=== PATIENT | male | born 1965 | race African-American/Black ===

== ENCOUNTER 2021-10-28 14:42 | Observation (INO) ==
[2021-10-28 15:50] LABS: Basophils % 0.4 % (0.0-0.8); Eosinophils # 0.1 10*3/uL (0.0-0.87); Eosinophils % 1.5 % (0.00-10.9); Hematocrit 43.1 VOL% (42.0-52.0); Hemoglobin 14.2 GM/DL (14.0-18.0); Immature Granulocytes % 0.3 %; Immature Granulocytes Absolute 0.02 #; Lymphocytes # 2.2 10*3/uL (1.4-4.0); Lymphocytes % 28.6 % (21.2-54.2); Mean Corpuscular HGB Conc 32.9 GM/DL (32-36); Mean Corpuscular Volume 79.2 FL (87-102); Mean Platelet Volume 10.3 FL (9.6-12.0); Monocytes # 0.7 10*3/uL (0.11-0.8); Monocytes % 8.6 % (1.7-12.7); Neutrophils % 60.6 % (38.7-73.9); Platelet Count 257 T/CUMM (130-400); Red Blood Count 5.44 MC/CUMM (3.8-5.5); Red Cell Distribution Width 15.9 % (9.3-17.3); White Blood Count 7.5 T/CUMM (4-12)
[2021-10-28 16:14] LABS: Albumin 3.2 G/DL (3.4-5.0); Bilirubin,Total 0.6 MG/DL (0.20-1.00); Calcium 8.8 MG/DL (8.5-10.1); Osmolality,Calculated 290.8 MOS/KG (273-304); Potassium 4.1 MMOL/L (3.5-5.1); Total Protein 6.3 G/DL (6.4-8.2)
[2021-10-28] MEDS ORDERED: INSULIN REGULAR 100 UNIT/ML IV ONE (17:38)
[2021-10-28 19:44] LABS: Barbiturates Screen,Urine Negative (Negative); Benzodiazepines Screen,Urine Negative (Negative); Cannabinoid Screen,Urine Positive (Negative); Opiate Screen,Urine Negative (Negative); Phencyclidine Screen,Urine Negative (Negative)
[2021-10-28 19:52] LABS: Protein,Urine Negative (Negative); Urine Appearance Clear (Clear); Urine Color Yellow (Yellow)
[2021-10-28 19:53] LABS: Bilirubin,Urine Negative (Negative); Blood, Urine Negative (Negative); Glucose,Urine (UA) >1000 mg/dL (Negative); Ketones,Urine Negative (Negative); Nitrite,Urine Negative (Negative)
[2021-10-28 19:55] LABS: Mucus,Urine Occasional /LPF (Occasional); RBC,Urine 4 /HPF (0-4); Squamous Epithelial Cell,Urine Occasional /HPF (0-10)
[2021-10-28] MEDS ORDERED: DEXTROSE 50% 25 GM/50 ML VIAL IV PRN (21:00)
[2021-10-28] MEDS ORDERED: guaiFENesin/DM ER 600-30 MG TABLET PO PRN (21:00)
[2021-10-28] MEDS ORDERED: NICOTINE 21 MG/24 HR PATCH TRANSDERM PRN (21:00)
[2021-10-28] MEDS ORDERED: ALBUTEROL/IPRATROPIUM 3 ML NEB RESP TX PRN (21:00)
[2021-10-28] MEDS ORDERED: DEXTROSE 10% 250 ML BAG IV PRN (21:00)
[2021-10-28] MEDS ORDERED: hydrALAZINE 20 MG/1 ML VIAL IV PRN (21:00)
[2021-10-28] MEDS ORDERED: GLUCAGON 1 MG VIAL IM PRN ×2 (21:00)
[2021-10-28] MEDS ORDERED: ACETAMINOPHEN 325 MG TABLET PO PRN (21:00)
[2021-10-28] MEDS ORDERED: diphenhydrAMINE CAP 25 MG CAPSULE PO PRN (21:00)
[2021-10-28] MEDS ORDERED: ONDANSETRON 4 MG/2 ML VIAL IV PRN (21:00)
[2021-10-28] MEDS ORDERED: ZALEPLON 5 MG CAPSULE PO PRN (21:00)
[2021-10-28] MEDS: HEPARIN 5,000 UNIT/1 ML VIAL SUBCUT SCH (22:25)
[2021-10-28] MEDS: INSULIN LISPRO 100 UNIT/ML SUBCUT SCH (22:26)
[2021-10-29 03:53] LABS: Basophils # 0.1 10*3/uL (0.0-0.2); Basophils % 0.8 % (0.0-0.8); Eosinophils # 0.2 10*3/uL (0.0-0.87); Eosinophils % 2.6 % (0.00-10.9); Hemoglobin 13.5 GM/DL (14.0-18.0); Immature Granulocytes % 0.1 %; Immature Granulocytes Absolute 0.01 #; Lymphocytes # 3.2 10*3/uL (1.4-4.0); Lymphocytes % 43.5 % (21.2-54.2); Mean Corpuscular HGB Conc 32.9 GM/DL (32-36); Mean Corpuscular Volume 79.8 FL (87-102); Mean Platelet Volume 9.7 FL (9.6-12.0); Monocytes # 0.7 10*3/uL (0.11-0.8); Monocytes % 9.5 % (1.7-12.7); Neutrophils % 43.5 % (38.7-73.9); Platelet Count 224 T/CUMM (130-400); Red Blood Count 5.14 MC/CUMM (3.8-5.5); Red Cell Distribution Width 15.6 % (9.3-17.3); White Blood Count 7.3 T/CUMM (4-12)
[2021-10-29 04:02] LABS: Calcium 8.8 MG/DL (8.5-10.1); Osmolality,Calculated 282.8 MOS/KG (273-304); Potassium 3.7 MMOL/L (3.5-5.1)
[2021-10-29] MEDS ORDERED: MAGNESIUM SULF RIDER 2 GM/50 ML PREMIX IV ONE (08:05)
[2021-10-29] MEDS ORDERED: AZITHROMYCIN INJ 500 MG in SODIUM CHLORIDE 0.9% 250 ML IV ONE (08:06)
[2021-10-29 08:30] LABS: Free T4 (Free Thyroxine) 0.94 NG/DL (0.76-1.46); Thyroid Stimulating Hormone 0.897 uIU/ml (0.358-3.74)
[2021-10-29] MEDS: BISACODYL 5 MG TABLET PO SCH (10:05)
[2021-10-29] MEDS: PANTOPRAZOLE 40 MG TABLET PO SCH (10:05)
[2021-10-29] MEDS: HEPARIN 5,000 UNIT/1 ML VIAL SUBCUT SCH ×2 (10:07→20:43)
[2021-10-29] MEDS: cefTRIAXone 1,000 MG in SODIUM CHLORIDE 0.9% 100 ML IV SCH (10:08)
[2021-10-29] MEDS: INSULIN LISPRO 100 UNIT/ML SUBCUT SCH ×5 (10:25→20:51)
[2021-10-29] MEDS: GABAPENTIN 300 MG CAPSULE PO SCH ×2 (14:54→20:43)
[2021-10-30] MEDS: HEPARIN 5,000 UNIT/1 ML VIAL SUBCUT SCH ×2 (09:23→20:22)
[2021-10-30] MEDS: PANTOPRAZOLE 40 MG TABLET PO SCH (09:23)
[2021-10-30] MEDS: ATORVASTATIN 20 MG TABLET PO SCH (09:23)
[2021-10-30] MEDS: AZITHROMYCIN INJ 500 MG in SODIUM CHLORIDE 0.9% 250 ML IV SCH (09:23)
[2021-10-30] MEDS: GABAPENTIN 300 MG CAPSULE PO SCH ×3 (09:23→20:22)
[2021-10-30] MEDS: cefTRIAXone 1,000 MG in SODIUM CHLORIDE 0.9% 100 ML IV SCH (09:23)
[2021-10-30] MEDS: BISACODYL 5 MG TABLET PO SCH (09:23)
[2021-10-30] MEDS: INSULIN LISPRO 100 UNIT/ML SUBCUT SCH ×4 (09:23→20:21)
[2021-10-30] MEDS ORDERED: SKIN HEALING OINT (AQUAPHOR) 50 GM TUBE TOP PRN (12:19)
[2021-10-31 04:53] LABS: Basophils # 0.1 10*3/uL (0.0-0.2); Basophils % 0.6 % (0.0-0.8); Eosinophils # 0.1 10*3/uL (0.0-0.87); Eosinophils % 1.6 % (0.00-10.9); Hematocrit 40.7 VOL% (42.0-52.0); Hemoglobin 13.4 GM/DL (14.0-18.0); Immature Granulocytes % 0.2 %; Immature Granulocytes Absolute 0.02 #; Mean Corpuscular HGB Conc 32.9 GM/DL (32-36); Mean Corpuscular Volume 78.9 FL (87-102); Mean Platelet Volume 10.1 FL (9.6-12.0); Monocytes # 0.7 10*3/uL (0.11-0.8); Monocytes % 8.5 % (1.7-12.7); Neutrophils % 54.1 % (38.7-73.9); Platelet Count 214 T/CUMM (130-400); Red Blood Count 5.16 MC/CUMM (3.8-5.5); Red Cell Distribution Width 15.5 % (9.3-17.3); White Blood Count 8.6 T/CUMM (4-12)
[2021-10-31 05:16] LABS: Calcium 8.9 MG/DL (8.5-10.1); Osmolality,Calculated 289.1 MOS/KG (273-304); Potassium 3.9 MMOL/L (3.5-5.1)
[2021-10-31] MEDS: cefTRIAXone 1,000 MG in SODIUM CHLORIDE 0.9% 100 ML IV SCH (08:54)
[2021-10-31] MEDS: INSULIN LISPRO 100 UNIT/ML SUBCUT SCH ×2 (08:55→12:17)
[2021-10-31] MEDS: ATORVASTATIN 20 MG TABLET PO SCH (08:55)
[2021-10-31] MEDS: BISACODYL 5 MG TABLET PO SCH (08:55)
[2021-10-31] MEDS: HEPARIN 5,000 UNIT/1 ML VIAL SUBCUT SCH (08:55)
[2021-10-31] MEDS: GABAPENTIN 300 MG CAPSULE PO SCH ×2 (08:55→14:20)
[2021-10-31] MEDS: PANTOPRAZOLE 40 MG TABLET PO SCH (08:55)
[2021-10-31] MEDS: AZITHROMYCIN INJ 500 MG in SODIUM CHLORIDE 0.9% 250 ML IV SCH (08:56)
[2021-10-31] MEDS ORDERED: glipiZIDE 10 MG TABLET PO SCH (09:30)
[2021-10-31 11:16] VITALS: BP 145/96
== END 2021-10-31 14:50 | disposition home or self-care (01) ==
LOC: N.EDINP 14:42 → N.ED 14:42 → N.3E 10-29 12:12
PROVIDERS: ADMIT Internal Medicine; ATTEND Internal Medicine